=== PATIENT | male | born 1945 | race Hispanic/Latino ===

== ENCOUNTER 2016-04-05 07:04 | Outpatient (CLI) | payer MEDICARE | END 2016-04-05 07:05 | LOC: NAV LAB 07:04 | PROVIDERS: ATTEND Urology | DX: C61 Malignant neoplasm of prostate (principal) | CPT/HCPCS: 36415; 84153 ==

== ENCOUNTER 2016-06-21 07:28 | Outpatient (CLI) | payer MEDICARE ==
[2016-06-21 07:55] LABS: Anion Gap 14 mmol/L (10-20); BUN (Urea Nitrogen) 14 mg/dL (8.4-25.7); Calc. Creatinine Clearance 0 mL/min (70-130); Calcium 9.4 mg/dL (7.8-10.44); Carbon Dioxide 25 mmol/L (23-31); Chloride 104 mmol/L (98-107); Estimated GFR-MDRD 76; Glucose 99 mg/dL (80-115); Potassium 4.3 mmol/L (3.5-5.1); Sodium 139 mmol/L (136-145)
== END 2016-06-21 07:29 | disposition home or self-care (01) ==
LOC: NAV LAB 07:28
PROVIDERS: ATTEND Internal Medicine Cardiovascular Disease
DX: I10 Essential (primary) hypertension (principal)
CPT/HCPCS: 36415; 80048